=== PATIENT | female | born 1950 | race African-American/Black ===

== ENCOUNTER 2022-09-30 15:56 | Inpatient (IN) | payer OTHER ==
[~2022-09-30] VITALS: Ht 170.2 cm; Wt 112.9 kg
[2022-09-30] MEDS ORDERED: DEXTROSE 50% SYRINGE 50 ML IV PRN (16:30)
[2022-09-30] MEDS ORDERED: ONDANSETRON HCL INJ 2MG/ML 2ML 2 MG/ML VIAL IV PRN (16:30)
[2022-09-30] MEDS ORDERED: SODIUM CHLORIDE FLUSH 10 ML SYR INJ PRN (16:30)
[2022-09-30 18:28] LABS: BASOPHILS # (AUTO) 0.1 (0.0-0.1); BASOPHILS % 0.8 % (0.0-1.0); EOSINOPHILS # (AUTO) 0.3 (0.0-0.4); EOSINOPHILS % 4.1 % (0.0-6.0); HEMATOCRIT 40.3 % (34.2-44.1); HEMOGLOBIN 12.5 g/dL (12.0-16.0); LYMPHOCYTES # (AUTO) 2.4 (1.0-3.2); LYMPHOCYTES % 32.7 % (18.0-39.1); MEAN CORPUSCULAR HEMOGLOBIN 26.3 pg (28-32); MEAN CORPUSCULAR VOLUME 84.7 fL (81-99); MONOCYTES % 13.8 % (4.4-11.3); NEUTROPHILS # (AUTO) 3.5 (2.1-6.9); NEUTROPHILS % 48.2 % (38.7-80.0); PLATELET COUNT 347 x10e3/uL (140-360); RED BLOOD COUNT 4.76 x10e6/uL (3.6-5.1); RED CELL DISTRIBUTION WIDTH 12.2 % (11.7-14.4)
[2022-09-30 18:43] LABS: ALANINE AMINOTRANSFERASE 12 IU/L (0-55); ALBUMIN 3.7 g/dL (3.5-5.0); ALBUMIN/GLOBULIN RATIO 0.9 (0.8-2.0); ALKALINE PHOSPHATASE 53 IU/L (40-150); BLOOD UREA NITROGEN 29 mg/dL (7-26); BUN/CREATININE RATIO 16 (6-25); CALCIUM 9.6 mg/dL (8.4-10.2); CARBON DIOXIDE 23 mmol/L (22-29); CHLORIDE 102 mmol/L (98-107); CREATININE, SERUM 1.82 mg/dL (0.57-1.11); GLUCOSE 200 mg/dL (74-118); SODIUM 137 mmol/L (136-145)
[2022-09-30] MEDS: Vancomycin IV 1 GM in SODIUM CHLORIDE 0.9% 250ML 250 ML IV SCH (19:00)
[2022-09-30] MEDS: INSULIN REGULAR, HUMAN 100 UNIT/1 ML SQ SCH ×2 (21:00→21:10)
[2022-09-30 22:01] VITALS: BP 132/62
[2022-10-01] VITALS (8 sets, daily range): BP systolic 116–140; BP diastolic 52–70
[2022-10-01] MEDS ORDERED: SODIUM CHLORIDE 0.9% 250ML 250 ML ONE (01:55)
[2022-10-01] MEDS ORDERED: CRESTOR10 MG PO (04:02)
[2022-10-01] MEDS ORDERED: DOXYCYCLINE HY100 MG PO (04:02)
[2022-10-01] MEDS ORDERED: ALLOPURINOL100 MG PO (04:02)
[2022-10-01] MEDS ORDERED: CYMBALTA30 MG (04:02)
[2022-10-01] MEDS ORDERED: ASPIRIN81 MG PO (04:02)
[2022-10-01] MEDS ORDERED: CLOPIDOGREL75 MG PO (04:02)
[2022-10-01] MEDS ORDERED: AMLODIPINE BESYL5 MG PO (04:02)
[2022-10-01] MEDS ORDERED: LYRICA150 MG PO (04:02)
[2022-10-01] MEDS ORDERED: LOSARTAN POTAS100 MG PO (04:02)
[2022-10-01] MEDS ORDERED: GLIPIZIDE5 MG PO (04:02)
[2022-10-01] MEDS ORDERED: CEPHALEXIN500 MG PO (04:02)
[2022-10-01] MEDS: Vancomycin IV 1 GM in SODIUM CHLORIDE 0.9% 250ML 250 ML IV SCH ×2 (05:31→17:34)
[2022-10-01] MEDS: INSULIN REGULAR, HUMAN 100 UNIT/1 ML SQ SCH ×4 (07:30→21:00)
[2022-10-01] MEDS ORDERED: ONDANSETRON HCL INJ 2MG/ML 2ML 2 MG/ML VIAL IV PRN (11:30)
[2022-10-01] MEDS ORDERED: HYDRALAZINE HCL 20 MG/ML VIAL IV PRN (11:30)
[2022-10-01] MEDS: AMLODIPINE BESYLATE 5 MG TAB PO SCH (13:07)
[2022-10-01] MEDS: PREGABALIN 75 MG CAP PO SCH (13:07)
[2022-10-01] MEDS: DULOXETINE HCL 30 MG DELAYED RELEASE PO SCH (13:07)
[2022-10-01] MEDS: GLIPIZIDE 5 MG TAB PO SCH (13:07)
[2022-10-01] MEDS: ALLOPURINOL 100 MG TAB PO SCH (13:08)
[2022-10-01] MEDS: ENOXAPARIN SODIUM INJ 100 MG/ML SYR SC SCH (17:34)
[2022-10-01] MEDS: SODIUM CHLORIDE 0.9% 1000ML 1,000 ML IV SCH (19:50)
[2022-10-01] MEDS: ATORVASTATIN 20 MG TAB PO SCH (19:51)
[2022-10-01] MEDS: ACETAMINOPHEN 325 MG TAB PO PRN (19:51)
[2022-10-02] VITALS (8 sets, daily range): BP systolic 102–144; BP diastolic 47–90
[2022-10-02] MEDS: Vancomycin IV 1 GM in SODIUM CHLORIDE 0.9% 250ML 250 ML IV SCH ×2 (05:30→19:17)
[2022-10-02] MEDS: SODIUM CHLORIDE 0.9% 1000ML 1,000 ML IV SCH ×2 (07:30→17:30)
[2022-10-02] MEDS: INSULIN REGULAR, HUMAN 100 UNIT/1 ML SQ SCH ×4 (07:30→21:43)
[2022-10-02 07:55] LABS: ANION GAP 16.2 mmol/L (8-16); CALCIUM 9.7 mg/dL (8.4-10.2); CREATININE, SERUM 1.72 mg/dL (0.57-1.11); POTASSIUM 4.2 mmol/L (3.5-5.1)
[2022-10-02] MEDS: ACETAMINOPHEN 325 MG TAB PO PRN (08:53)
[2022-10-02] MEDS: GLIPIZIDE 5 MG TAB PO SCH (08:54)
[2022-10-02] MEDS: DULOXETINE HCL 30 MG DELAYED RELEASE PO SCH (08:54)
[2022-10-02] MEDS: PREGABALIN 75 MG CAP PO SCH ×2 (08:55→18:02)
[2022-10-02] MEDS: ALLOPURINOL 100 MG TAB PO SCH (08:55)
[2022-10-02] MEDS: AMLODIPINE BESYLATE 5 MG TAB PO SCH (08:55)
[2022-10-02 09:37] LABS: BASOPHILS # (AUTO) 0.1 (0.0-0.1); BASOPHILS % 1.2 % (0.0-1.0); EOSINOPHILS # (AUTO) 0.3 (0.0-0.4); EOSINOPHILS % 5.9 % (0.0-6.0); HEMATOCRIT 39.7 % (34.2-44.1); HEMOGLOBIN 12.6 g/dL (12.0-16.0); LYMPHOCYTES # (AUTO) 1.7 (1.0-3.2); LYMPHOCYTES % 34.1 % (18.0-39.1); MEAN CORPUSCULAR HEMOGLOBIN 26.6 pg (28-32); MEAN CORPUSCULAR HGB CONC 31.7 g/dL (31-35); MEAN CORPUSCULAR VOLUME 83.8 fL (81-99); MONOCYTES # (AUTO) 0.6 (0.2-0.8); MONOCYTES % 11.9 % (4.4-11.3); NEUTROPHILS # (AUTO) 2.3 (2.1-6.9); NEUTROPHILS % 46.7 % (38.7-80.0); PLATELET COUNT 314 x10e3/uL (140-360); RED BLOOD COUNT 4.74 x10e6/uL (3.6-5.1); RED CELL DISTRIBUTION WIDTH 12.9 % (11.7-14.4)
[2022-10-02] MEDS: ENOXAPARIN SODIUM INJ 100 MG/ML SYR SC SCH (18:02)
[2022-10-02] MEDS: ATORVASTATIN 20 MG TAB PO SCH (21:39)
[2022-10-03] VITALS (8 sets, daily range): BP systolic 119–148; BP diastolic 58–71
[2022-10-03] MEDS: SODIUM CHLORIDE 0.9% 1000ML 1,000 ML IV SCH ×3 (03:30→13:30)
[2022-10-03] MEDS: Vancomycin IV 1 GM in SODIUM CHLORIDE 0.9% 250ML 250 ML IV SCH (05:34)
[2022-10-03] MEDS: INSULIN REGULAR, HUMAN 100 UNIT/1 ML SQ SCH ×4 (07:30→21:00)
[2022-10-03] MEDS: ALLOPURINOL 100 MG TAB PO SCH (09:00)
[2022-10-03] MEDS: AMLODIPINE BESYLATE 5 MG TAB PO SCH (09:00)
[2022-10-03] MEDS: DULOXETINE HCL 30 MG DELAYED RELEASE PO SCH (09:00)
[2022-10-03] MEDS: PREGABALIN 75 MG CAP PO SCH ×2 (09:00→17:31)
[2022-10-03] MEDS ORDERED: ONDANSETRON HCL 4 MG ORAL DISINTEGRATING TAB PO PRN (11:30)
[2022-10-03 16:30] LABS: CLARITY,URINE CLEAR (CLEAR); COLOR,URINE YELLOW (YELLOW); KETONES,URINE NEGATIVE (NEGATIVE); LEUKOCYTE ESTERASE ,URINE NEGATIVE (NEGATIVE); NITRITE,URINE NEGATIVE (NEGATIVE); PROTEIN,URINE DIPSTICK NEGATIVE (NEGATIVE); URINE UROBILINOGEN 0.2 mg/dL (0.2 - 1)
[2022-10-03 16:38] LABS: EPITHELIAL CELLS,URINE RARE /LPF
[2022-10-03 16:47] LABS: TOTAL PROTEIN, URINE < 6.8 mg/dL (1-14)
[2022-10-03] MEDS: ACETAMINOPHEN 325 MG TAB PO PRN (17:31)
[2022-10-03] MEDS: ENOXAPARIN SODIUM INJ 100 MG/ML SYR SC SCH (17:32)
[2022-10-03] MEDS: ATORVASTATIN 20 MG TAB PO SCH (21:27)
[2022-10-04] VITALS (8 sets, daily range): BP systolic 119–162; BP diastolic 50–81
[2022-10-04] MEDS: SODIUM CHLORIDE 0.9% 1000ML 1,000 ML IV SCH ×3 (01:17→19:30)
[2022-10-04 05:55] LABS: ALBUMIN 3.2 g/dL (3.5-5.0); ALBUMIN/GLOBULIN RATIO 0.9 (0.8-2.0); ANION GAP 15.1 mmol/L (8-16); CREATININE, SERUM 1.57 mg/dL (0.57-1.11); POTASSIUM 4.1 mmol/L (3.5-5.1)
[2022-10-04] MEDS: INSULIN REGULAR, HUMAN 100 UNIT/1 ML SQ SCH ×4 (08:00→20:52)
[2022-10-04] MEDS: GLIPIZIDE 5 MG TAB PO SCH (08:30)
[2022-10-04] MEDS: PREGABALIN 75 MG CAP PO SCH ×2 (09:58→16:49)
[2022-10-04] MEDS: ALLOPURINOL 100 MG TAB PO SCH (09:59)
[2022-10-04] MEDS: DULOXETINE HCL 30 MG DELAYED RELEASE PO SCH (09:59)
[2022-10-04] MEDS: AMLODIPINE BESYLATE 5 MG TAB PO SCH (09:59)
[2022-10-04] MEDS: ACETAMINOPHEN 325 MG TAB PO PRN (10:18)
[2022-10-04] MEDS: ENOXAPARIN SODIUM INJ 100 MG/ML SYR SC SCH (16:49)
[2022-10-04] MEDS: ACETYLCYSTEINE 20% INHAL SOLN 30 ML VIAL PO SCH (16:49)
[2022-10-04] MEDS: ATORVASTATIN 20 MG TAB PO SCH (20:52)
[2022-10-05] VITALS (7 sets, daily range): BP systolic 131–147; BP diastolic 56–87
[2022-10-05] MEDS: SODIUM CHLORIDE 0.9% 1000ML 1,000 ML IV SCH ×2 (05:30→15:30)
[2022-10-05 06:45] LABS: ALBUMIN 3.4 g/dL (3.5-5.0); ALBUMIN/GLOBULIN RATIO 0.9 (0.8-2.0); ANION GAP 13.9 mmol/L (8-16); CALCIUM 9.1 mg/dL (8.4-10.2); CREATININE, SERUM 1.47 mg/dL (0.57-1.11); POTASSIUM 3.9 mmol/L (3.5-5.1)
[2022-10-05] MEDS: INSULIN REGULAR, HUMAN 100 UNIT/1 ML SQ SCH ×4 (08:00→21:00)
[2022-10-05] MEDS: GLIPIZIDE 5 MG TAB PO SCH (08:30)
[2022-10-05] MEDS ORDERED: SODIUM CHLORIDE FLUSH 10 ML SYR IV ONE (09:00)
[2022-10-05] MEDS: PREGABALIN 75 MG CAP PO SCH ×2 (09:44→16:53)
[2022-10-05] MEDS: DULOXETINE HCL 30 MG DELAYED RELEASE PO SCH (09:44)
[2022-10-05] MEDS: ALLOPURINOL 100 MG TAB PO SCH (09:45)
[2022-10-05] MEDS: ACETYLCYSTEINE 20% INHAL SOLN 30 ML VIAL PO SCH ×2 (09:45→16:53)
[2022-10-05] MEDS: AMLODIPINE BESYLATE 5 MG TAB PO SCH (09:45)
[2022-10-05] MEDS: ENOXAPARIN SODIUM INJ 100 MG/ML SYR SC SCH (16:52)
[2022-10-05] MEDS: ATORVASTATIN 20 MG TAB PO SCH (20:58)
[2022-10-06] VITALS (25 sets, daily range): BP systolic 130–175; BP diastolic 50–90
[2022-10-06] MEDS: SODIUM CHLORIDE 0.9% 1000ML 1,000 ML IV SCH ×3 (01:30→21:30)
[2022-10-06] MEDS: GLIPIZIDE 5 MG TAB PO SCH (07:30)
[2022-10-06] MEDS: INSULIN REGULAR, HUMAN 100 UNIT/1 ML SQ SCH ×4 (07:30→21:00)
[2022-10-06] MEDS: ACETYLCYSTEINE 20% INHAL SOLN 30 ML VIAL PO SCH (08:42)
[2022-10-06] MEDS: DULOXETINE HCL 30 MG DELAYED RELEASE PO SCH (09:00)
[2022-10-06] MEDS: ALLOPURINOL 100 MG TAB PO SCH (09:00)
[2022-10-06] MEDS: PREGABALIN 75 MG CAP PO SCH ×2 (09:00→18:30)
[2022-10-06] MEDS: AMLODIPINE BESYLATE 5 MG TAB PO SCH (09:00)
[2022-10-06] MEDS ORDERED: SODIUM CHLORIDE FLUSH 10 ML SYR IV ONE (09:00)
[2022-10-06] MEDS ORDERED: HEPARIN SOD/SOD CHLORIDE 2,000 ML ONE (09:39)
[2022-10-06] MEDS ORDERED: HEPARIN SOD (PORCINE) 1000 UNIT/ML 30ML ONE (09:39)
[2022-10-06] MEDS ORDERED: NITROGLYCERIN/D5W 200 MCG/ML 250 ML ONE (09:40)
[2022-10-06] MEDS ORDERED: SODIUM CHLORIDE 0.9% 1000ML 1,000 ML ONE ×2 (09:40→10:39)
[2022-10-06] MEDS ORDERED: MIDAZOLAM HCL 2 MG/2 ML VIAL ONE (09:40)
[2022-10-06] MEDS ORDERED: IOPAMIDOL 300MG/ML 100 ML INFUS..BTL IV ONE ×2 (09:41→11:07)
[2022-10-06] MEDS ORDERED: FENTANYL CITRATE/PF 100MCG/2 ML INJ ONE (09:41)
[2022-10-06] MEDS ORDERED: LIDOCAINE HCL 1% LOCAL INJ 20 ML VIAL ONE (09:41)
[2022-10-06] MEDS ORDERED: VERAPAMIL HCL 2.5 MG/ML 2 ML VIAL ONE (10:39)
[2022-10-06] MEDS: ENOXAPARIN SODIUM INJ 100 MG/ML SYR SC SCH (17:00)
[2022-10-06 17:26] LABS: HEMATOCRIT 34.3 % (34.2-44.1); HEMOGLOBIN 10.5 g/dL (12.0-16.0)
[2022-10-06] MEDS: ACETAMINOPHEN 325 MG TAB PO PRN (22:20)
[2022-10-06] MEDS: ATORVASTATIN 20 MG TAB PO SCH (22:21)
[2022-10-07] VITALS (8 sets, daily range): BP systolic 128–178; BP diastolic 55–81
[2022-10-07 06:41] LABS: BASOPHILS % 0.4 % (0.0-1.0); EOSINOPHILS # (AUTO) 0.2 (0.0-0.4); EOSINOPHILS % 3.1 % (0.0-6.0); HEMATOCRIT 30.2 % (34.2-44.1); HEMOGLOBIN 9.2 g/dL (12.0-16.0); LYMPHOCYTES # (AUTO) 1.2 (1.0-3.2); LYMPHOCYTES % 16.8 % (18.0-39.1); MEAN CORPUSCULAR HEMOGLOBIN 26.4 pg (28-32); MEAN CORPUSCULAR HGB CONC 30.5 g/dL (31-35); MEAN CORPUSCULAR VOLUME 86.8 fL (81-99); MONOCYTES # (AUTO) 0.8 (0.2-0.8); MONOCYTES % 10.9 % (4.4-11.3); NEUTROPHILS % 68.5 % (38.7-80.0); PLATELET COUNT 201 x10e3/uL (140-360); RED BLOOD COUNT 3.48 x10e6/uL (3.6-5.1); RED CELL DISTRIBUTION WIDTH 12.8 % (11.7-14.4)
[2022-10-07 07:20] LABS: ANION GAP 12.6 mmol/L (8-16); CALCIUM 8.4 mg/dL (8.4-10.2); CREATININE, SERUM 1.26 mg/dL (0.57-1.11); POTASSIUM 3.6 mmol/L (3.5-5.1)
[2022-10-07] MEDS: GLIPIZIDE 5 MG TAB PO SCH (07:21)
[2022-10-07] MEDS: INSULIN REGULAR, HUMAN 100 UNIT/1 ML SQ SCH ×4 (07:21→22:03)
[2022-10-07] MEDS: PREGABALIN 75 MG CAP PO SCH ×2 (09:00→16:55)
[2022-10-07] MEDS: AMLODIPINE BESYLATE 5 MG TAB PO SCH (09:35)
[2022-10-07] MEDS ORDERED: BUPIVACAINE HCL 0.5% INJ 30 ML VIAL INJ ONE (12:16)
[2022-10-07] MEDS ORDERED: FENTANYL CITRATE/PF 100MCG/2 ML INJ ONE (12:20)
[2022-10-07] MEDS ORDERED: POVIDONE IODINE 0.05% 0.05 % ML PO ONE (13:21)
[2022-10-07] MEDS ORDERED: PROPOFOL IV EMULSION 10 MG/ML 20 ML VIAL ONE (13:21)
[2022-10-07] MEDS: SODIUM CHLORIDE 0.9% 1000ML 1,000 ML IV SCH ×2 (14:12→17:30)
[2022-10-07] MEDS: ALLOPURINOL 100 MG TAB PO SCH (14:12)
[2022-10-07] MEDS: DULOXETINE HCL 30 MG DELAYED RELEASE PO SCH (14:12)
[2022-10-07] MEDS: ENOXAPARIN SODIUM INJ 100 MG/ML SYR SC SCH (16:56)
[2022-10-07] MEDS: ACETAMINOPHEN 325 MG TAB PO PRN (17:05)
[2022-10-07] MEDS: ATORVASTATIN 20 MG TAB PO SCH (22:01)
[2022-10-07] MEDS: ACETAMINOPHEN/CODEINE 300MG - 30MG TAB PO PRN (23:05)
[2022-10-08] VITALS: BP 137/62
[2022-10-08 04:00] VITALS: BP 146/64
[2022-10-08] MEDS: SODIUM CHLORIDE 0.9% 1000ML 1,000 ML IV SCH (04:05)
[2022-10-08] MEDS: INSULIN REGULAR, HUMAN 100 UNIT/1 ML SQ SCH ×2 (07:30→11:30)
[2022-10-08 08:25] VITALS: BP 138/75
[2022-10-08 09:02] VITALS: BP 138/75
[2022-10-08] MEDS: ACETAMINOPHEN/CODEINE 300MG - 30MG TAB PO PRN (09:14)
[2022-10-08] MEDS: AMLODIPINE BESYLATE 5 MG TAB PO SCH (09:28)
[2022-10-08] MEDS: DULOXETINE HCL 30 MG DELAYED RELEASE PO SCH (09:28)
[2022-10-08] MEDS: PREGABALIN 75 MG CAP PO SCH (09:28)
[2022-10-08] MEDS: ALLOPURINOL 100 MG TAB PO SCH (09:28)
[2022-10-08] MEDS: GLIPIZIDE 5 MG TAB PO SCH (09:28)
[2022-10-08 11:33] VITALS: BP 116/75
[2022-10-08] MEDS ORDERED: tylenol #3 PO (12:10)
[2022-10-08] MEDS ORDERED: ONDANSETRON ODT8 MG SL (12:11)
[2022-10-08] MEDS ORDERED: KEFLEX125 MG/5 M PO (12:12)
== END 2022-10-08 13:09 | disposition home or self-care (01) | DRG 271 ==
LOC: ER 16:11 → ERHOLD 16:23 → MED/SURG2 22:03
PROVIDERS: ADMIT Internal Medicine; ATTEND Internal Medicine
PROC: 02HV33Z Insertion of Infusion Device into Superior Vena Cava, Percutaneous Approach (ICD-10-PCS; 2022-10-03)
PROC: 047S3Z1 Dilation of Left Posterior Tibial Artery using Drug-Coated Balloon, Percutaneous Approach (ICD-10-PCS; principal; 2022-10-06)
PROC: 04CS3ZZ Extirpation of Matter from Left Posterior Tibial Artery, Percutaneous Approach (ICD-10-PCS; 2022-10-06)
PROC: 0Y6S0Z0 Detachment at Left 2nd Toe, Complete, Open Approach (ICD-10-PCS; 2022-10-07)
DX: E11.51 Type 2 diabetes mellitus with diabetic peripheral angiopathy without gangrene (principal); M86.172 Other acute osteomyelitis, left ankle and foot; E11.69 Type 2 diabetes mellitus with other specified complication; E11.621 Type 2 diabetes mellitus with foot ulcer; E11.42 Type 2 diabetes mellitus with diabetic polyneuropathy; E11.22 Type 2 diabetes mellitus with diabetic chronic kidney disease; L97.524 Non-pressure chronic ulcer of other part of left foot with necrosis of bone; I70.245 Atherosclerosis of native arteries of left leg with ulceration of other part of foot; I25.10 Atherosclerotic heart disease of native coronary artery without angina pectoris; I12.9 Hypertensive chronic kidney disease with stage 1 through stage 4 chronic kidney disease, or unspecified chronic kidney disease; E66.01 Morbid (severe) obesity due to excess calories; N18.32 Chronic kidney disease, stage 3b; E78.5 Hyperlipidemia, unspecified; Z98.61 Coronary angioplasty status; Z68.39 Body mass index [BMI] 39.0-39.9, adult; Z89.022 Acquired absence of left finger(s); Z88.5 Allergy status to narcotic agent; Z88.8 Allergy status to other drugs, medicaments and biological substances
CPT/HCPCS: 0223U; 36415; 36569; 37228; 37229; 71045; 75625; 75716; 76770; 80048; 80053; 80202; 81001; 82570; 82948; 84156; 85014; 85018; 85025; 85651; 86140; 87040; 87071; 87075; 87205; 88304; 88305; 88311; 93925; 96361; 96372; 99152; 99153; 99284; C1724; C1725; C1769; C1887; C1894; J1644; J1650; J1817; J2001; J2250; J2405; J2543; J3010; J3370; J7030; J7050; Q0162; Q9967